=== PATIENT | male | born 1965 | race Caucasian/White ===

== ENCOUNTER 2023-01-12 22:15 | Emergency (ER) | payer BC ==
[2023-01-12] MEDS ORDERED: Cyclobenzaprine 10 MG TAB ONE (22:52)
[2023-01-12] MEDS ORDERED: traMADol HCl 50 MG TAB ONE (22:52)
== END 2023-01-12 23:05 | disposition home or self-care (01) ==
LOC: CSHERS 22:15
DX: S16.1XXA Strain of muscle, fascia and tendon at neck level, initial encounter (principal); X50.1XXA Overexertion from prolonged static or awkward postures, initial encounter
CPT/HCPCS: 99283

== ENCOUNTER 2023-01-14 04:31 | Emergency (ER) | payer BC ==
[2023-01-14] MEDS ORDERED: Ketorolac Tromethamine 30 MG/ML VIAL ONE (05:11)
[2023-01-14] MEDS ORDERED: Morphine 10 MG/ML VIAL ONE (05:11)
== END 2023-01-14 05:51 | disposition home or self-care (01) ==
LOC: CSHERS 04:31
DX: M54.12 Radiculopathy, cervical region (principal); M25.511 Pain in right shoulder
CPT/HCPCS: 96372; 99283; J1885; J2270

== ENCOUNTER → 2023-01-17 | Day surgery (SDC) | payer BC | LOC: CSHRAD 16:57 | PROVIDERS: ATTEND Family Medicine Sports Medicine | DX: M47.812 Spondylosis without myelopathy or radiculopathy, cervical region (principal) | CPT/HCPCS: 72040 ==

== ENCOUNTER 2023-03-10 01:46 | Emergency (ER) | payer BC ==
[2023-03-10] MEDS ORDERED: Ketorolac Tromethamine 30 MG (1 mL) VIAL ONE (02:27)
[2023-03-10] MEDS ORDERED: Morphine 10 MG/ML VIAL ONE (02:27)
[2023-03-10] MEDS ORDERED: HYDROcodone/Acetaminophen 10/325 mg Tablet ONE (03:16)
== END 2023-03-10 03:28 | disposition home or self-care (01) ==
LOC: CSHERS 01:46
DX: M54.12 Radiculopathy, cervical region (principal); M62.838 Other muscle spasm; F17.210 Nicotine dependence, cigarettes, uncomplicated
CPT/HCPCS: 96372; 99283; J1885; J2270